=== PATIENT | male | born 1945 | race Caucasian/White ===

== ENCOUNTER 2023-02-11 12:10 | Day surgery (SDC) | payer MEDICARE ==
[~2023-02-11] VITALS: Ht 182.9 cm; Wt 91.0 kg
[2023-02-11] VITALS (12 sets, daily range): BP systolic 106–147; BP diastolic 54–86; PULSE 62–74; RESP 11–20; TEMP 97.8; O2SAT 92–97
[2023-02-11] MEDS ORDERED: diphenhydrAMINE 25mg capsule PO PRN (12:35)
[2023-02-11] MEDS ORDERED: LORazepam 0.5 MG tablet PO PRN (12:35)
[2023-02-11] MEDS ORDERED: CHLO25TA10 PO (12:54)
[2023-02-11] MEDS ORDERED: POTA8CAP20 PO (12:54)
[2023-02-11] MEDS ORDERED: SIMV5TAB58 PO (12:54)
[2023-02-11] MEDS ORDERED: CARV6.253 PO (12:54)
[2023-02-11] MEDS ORDERED: CLOP75TA34 PO (12:54)
[2023-02-11] MEDS ORDERED: ASPI-1468 PO (12:54)
[2023-02-11] MEDS ORDERED: CLONIDINE HCL PO (12:54)
[2023-02-11 13:06] LABS: ALBUMIN 3.9 G/DL (3.4-5.0); ANION GAP 10 (8-16); BLOOD UREA NITROGEN 11 MG/DL (7-18); BUN/CREATININE RATIO 12.6 (10.0-20.0); CHLORIDE 99 MMOL/L (99-107); CREATININE 0.87 MG/DL (0.60-1.10); GLUCOSE 93 MG/DL (70-104); POTASSIUM 3.2 MMOL/L (3.5-5.1); SODIUM 137 MMOL/L (135-145); TOTAL CARBON DIOXIDE 27.8 MMOL/L (24-32); eCRCL 78 ML/MIN; eGFR 85 ML/MIN
[2023-02-11 13:08] LABS: BASOPHILS # (AUTO) 0.1 X10'3 (0-0.2); BASOPHILS % (AUTO) 1.1 % (0-1); EOSINOPHILS # (AUTO) 0.3 X10'3 (0-0.9); EOSINOPHILS % (AUTO) 3.3 % (0-6); HEMATOCRIT 46.7 % (42.0-52.0); HEMOGLOBIN 15.7 g/dl (14.0-17.9); LYMPHOCYTES # (AUTO) 1.8 X10'3 (1.1-4.8); LYMPHOCYTES % (AUTO) 22.9 % (21-51); MEAN CORPUSCULAR HEMOGLOBIN 30.4 PG (27.0-31.0); MEAN CORPUSCULAR HGB CONC 33.7 g/dL (33.0-36.5); MEAN CORPUSCULAR VOLUME 90.2 FL (78-98); MEAN PLATELET VOLUME 7.5 FL (7.4-10.4); MONOCYTES # (AUTO) 0.8 X10'3 (0-0.9); MONOCYTES % (AUTO) 10.3 % (2-12); NEUTROPHILS % (AUTO) 62.4 % (42-75); PLATELET COUNT 288 X10'3 (140-440); RED BLOOD COUNT 5.17 X10'6 (4.70-6.10); RED CELL DISTRIBUTION WIDTH 13.9 % (11.5-14.5)
[2023-02-11 13:10] LABS: APTT 29 SECONDS (22-32); PROTHROMBIN TIME 10.7 SECONDS (9.0-12.0)
[2023-02-11] MEDS: normal saline 1,000 ML IV SCH ×2 (14:25→22:35)
[2023-02-11] MEDS ORDERED: LIDOcaine 1% (10mg/ml) 2ml vial ONE (14:42)
[2023-02-11] MEDS ORDERED: verapamil 2.5 mg/ml inj IV ONE (14:42)
[2023-02-11] MEDS ORDERED: iohexol 350 MG/ML 50ML vial IV ONE ×2 (14:43→17:10)
[2023-02-11] MEDS ORDERED: fentaNYL/PF 50MCG/1 ML 2ML syringe ONE (14:43)
[2023-02-11] MEDS ORDERED: iohexol 350MG/ML 100ml bottle IV ONE ×3 (14:43→16:25)
[2023-02-11] MEDS ORDERED: midazolam 1 mg/ML 2ml injection ONE (14:43)
[2023-02-11] MEDS ORDERED: heparin 1,000unit/ml 10ml vial 10 ML ONE (14:43)
[2023-02-11] MEDS ORDERED: nitroGLYCERIN-Tridil 50MG/D5W 250 ML IV ONE (14:44)
[2023-02-11] MEDS ORDERED: heparin 25,000 UNIT/250ml bag 250 ML IV ONE (15:39)
[2023-02-11] MEDS ORDERED: heparin 1,000 UNITS/NS 500ml 500 ML ONE (16:42)
[2023-02-11] MEDS ORDERED: clopidogrel 300mg tablet ONE (17:21)
[2023-02-11] MEDS ORDERED: clopidogrel 300mg tablet PO ONE (18:00)
--- NOTE | 2023-02-11 18:30 | NUR ---
Heparin drip 1000 units/ hr initiated by color laboratory technician RN. Simon at 1830 per MD written order.
--- NOTE | 2023-02-11 18:31 | NUR ---
Called Dr. Roca answering service to request potassium replacement for K of 3.2.
[2023-02-11] MEDS ORDERED: potassium Cl 20 mEq SR tablet PO STA (18:42)
[2023-02-11] MEDS ORDERED: potassium Cl 20 mEq SR tablet PO ONE (20:00)
[2023-02-11] MEDS ORDERED: SIMVASTATIN 5 MG PO SCH (21:00)
--- NOTE | 2023-02-11 22:00 | NUR ---
Called report to CHAVO Macias. All questions answered.
--- NOTE | 2023-02-11 22:10 | NUR ---
Patient transfered to [facility]U 3012C via wheelchair with all known belongings. VSS, A&O x4, Denies SOB or chest pain, No S/S of bleeding or hematoma, Right radial site Dressing CDI. CHAVO Macias at bedside.
[2023-02-12 02:00] VITALS: BP 106/56; PULSE 64; RESP 16; TEMP 97.5; O2SAT 97
[2023-02-12 05:09] VITALS: RESP 16; O2SAT 97
[2023-02-12 06:00] VITALS: BP 111/58; PULSE 61; RESP 18; TEMP 97.6; O2SAT 93
--- NOTE | 2023-02-12 06:20 | NUR ---
Problems reprioritized. Patient report given, questions answered & plan of care reviewed with nolan finch.
[2023-02-12] MEDS ORDERED: potassium chloride 8mEq ER tablet PO SCH (08:00)
[2023-02-12] MEDS ORDERED: chlorthalidone 25mg tablet PO SCH (08:00)
[2023-02-12] MEDS: carvedilol 6.25mg tablet PO SCH ×2 (08:00→08:30)
[2023-02-12] MEDS ORDERED: clopidogrel 75mg tablet PO SCH ×2 (08:00)
[2023-02-12] MEDS ORDERED: aspirin 325mg tablet, delayed-release (Ecotrin) PO SCH (08:00)
[2023-02-12] MEDS: normal saline 1,000 ML IV SCH (08:35)
[2023-02-12 11:00] VITALS: BP 131/64; PULSE 73; RESP 16; TEMP 98.1; O2SAT 93
[2023-02-12 12:17] LABS: BASOPHILS % (AUTO) 0.6 % (0-1); EOSINOPHILS # (AUTO) 0.2 X10'3 (0-0.9); EOSINOPHILS % (AUTO) 2.3 % (0-6); HEMATOCRIT 40.1 % (42.0-52.0); HEMOGLOBIN 13.4 g/dl (14.0-17.9); LYMPHOCYTES # (AUTO) 1.4 X10'3 (1.1-4.8); LYMPHOCYTES % (AUTO) 17.6 % (21-51); MEAN CORPUSCULAR HEMOGLOBIN 30.5 PG (27.0-31.0); MEAN CORPUSCULAR HGB CONC 33.5 g/dL (33.0-36.5); MEAN CORPUSCULAR VOLUME 91.1 FL (78-98); MEAN PLATELET VOLUME 7.9 FL (7.4-10.4); MONOCYTES # (AUTO) 0.9 X10'3 (0-0.9); MONOCYTES % (AUTO) 10.8 % (2-12); NEUTROPHILS # (AUTO) 5.5 X10'3 (1.8-7.7); NEUTROPHILS % (AUTO) 68.7 % (42-75); PLATELET COUNT 268 X10'3 (140-440); RED BLOOD COUNT 4.41 X10'6 (4.70-6.10)
[2023-02-12 12:29] LABS: ALBUMIN 3.2 G/DL (3.4-5.0); ANION GAP 9 (8-16); BLOOD UREA NITROGEN 17 MG/DL (7-18); BUN/CREATININE RATIO 17.2 (10.0-20.0); CALCIUM 8.2 MG/DL (8.5-10.1); CHLORIDE 101 MMOL/L (99-107); CREATININE 0.99 MG/DL (0.60-1.10); GLUCOSE 130 MG/DL (70-104); POTASSIUM 3.3 MMOL/L (3.5-5.1); SODIUM 136 MMOL/L (135-145); TOTAL CARBON DIOXIDE 25.7 MMOL/L (24-32); eCRCL 69 ML/MIN; eGFR 73 ML/MIN
[2023-02-12] MEDS ORDERED: potassium Cl 20 mEq SR tablet PO ONE (13:10)
--- NOTE | 2023-02-12 13:25 | NUR ---
Discussed discharge instructions with pt. provided paper prescription per cardiology. Discussed upcoming appointments and cardiac rehabilitation. pt states he understands all instructions.
== END 2023-02-12 13:20 | disposition home or self-care (01) ==
LOC: SSTAY O 12:10 → PCU 3S 02-12 11:19 → UNDOADMOB 02-12 11:19 → UNDODISOB 02-12 13:20 → SSTAY O 02-12 13:20
PROVIDERS: ATTEND Internal Medicine Cardiovascular Disease
DX: R94.39 Abnormal result of other cardiovascular function study (principal); I25.10 Atherosclerotic heart disease of native coronary artery without angina pectoris; I10 Essential (primary) hypertension; E78.5 Hyperlipidemia, unspecified; I47.1 Supraventricular tachycardia; E03.9 Hypothyroidism, unspecified; Z86.73 Personal history of transient ischemic attack (TIA), and cerebral infarction without residual deficits; Z79.82 Long term (current) use of aspirin; Z79.01 Long term (current) use of anticoagulants; Z79.899 Other long term (current) drug therapy; Z72.89 Other problems related to lifestyle; Z87.891 Personal history of nicotine dependence; Z88.8 Allergy status to other drugs, medicaments and biological substances
CPT/HCPCS: 36415; 76937; 80048; 85025; 85347; 85610; 85730; 92921; 93005; 93458; 99152; 99153; A6258; C1874; C9600; J1644; J2250; J3010; J3490; J7030; Q0163; Q9967; 92920; A4615; A6402; A6449; C1725; C1751; C1769; C1894; G0378